=== PATIENT | female | born 1975 | race Caucasian/White ===

== ENCOUNTER → 2016-12-01 | Outpatient (CLI) | payer MEDICARE, MEDICAID ==
[~2016-12-01] MED LIST: /DULO30CA OR; /GLIM4TA OR; /INSULEV SC; AMLO25TA PO; BLAC540C PO; BUSP10TA PO; DULO20CA OR; FISH1CAP14 PO; GABAPOW41 PO; HYDR-3713 PO; INSUH10VL SC; INSULANT SC; INSULIN; ISOS20TA PO; L-LY500C2 PO; NEUR300C OR; OXCARBAZEPINE PO; TRIL1TAB PO; VALI5TAB OR; VITA1CAP40 PO; [UNRECOGNIZED DRUG - CODE] PO
[2016-12-01 10:29] LABS: BASO % 0.5 % (0.0-1.0); EOS # 0.1 K/mm3 (0.0-0.50); EOS % 1.4 % (0.0-3.0); LARGE UNSTAINED CELL # 0.1 K/mm3 (0.0-0.4); LYMPH # 1.8 K/mm3 (1.5-4.5); LYMPH % 20.3 % (24.0-44.0); MEAN CORPUSCULAR HGB CONC 34.1 g/dl (32.0-36.5); MEAN CORPUSCULAR VOLUME 93.8 fl (80.0-96.0); MONO # 0.5 K/mm3 (0.0-0.8); MONO % 5.6 % (0.0-5.0); NEUTROPHILS # 5.9 K/mm3 (1.8-7.7); NEUTROPHILS % 71.1 % (36.0-66.0); PLATELET COUNT, AUTOMATED 236 k/mm3 (150-450); WHITE BLOOD COUNT 8.3 K/mm3 (4.0-10.0)
--- NOTE | 2016-12-01 10:51 | REP ---
PA and lateral chest: Comparison is 03/29/2013. The lung marks are clear. The cardiac size is normal The mikel, mediastinum, and bony thorax are unremarkable. Impression: Negative PA and lateral chest. There is no interval change. Signed by Camron Fischer MD 12/01/2016 10:42 A
[2016-12-01 10:53] LABS: ALBUMIN 3.6 GM/DL (3.2-5.2); ALBUMIN/GLOBULIN RATIO 0.97 (1.00-1.93); ALKALINE PHOSPHATASE 85 U/L (45-117); ALT/SGPT 28 U/L (12-78); ANION GAP 8 MEQ/L (8-16); AST/SGOT 9 U/L (15-37); BILIRUBIN,TOTAL 0.4 MG/DL (0.2-1.0); BLOOD UREA NITROGEN 7 MG/DL (7-18); CARBON DIOXIDE LEVEL 28 MEQ/L (21-32); CHLORIDE LEVEL 101 MEQ/L (98-107); CREATININE FOR GFR 0.64 MG/DL (0.55-1.02); GLOMERULAR FILTRATION RATE > 60.0 (>58); GLUCOSE, FASTING 320 MG/DL (70-105); PHOSPHORUS LEVEL 3.2 MG/DL (2.5-4.9); POTASSIUM SERUM 4.5 MEQ/L (3.5-5.1); SODIUM LEVEL 137 MEQ/L (136-145); TOTAL PROTEIN 7.3 GM/DL (6.4-8.2)
--- NOTE | 2016-12-01 20:32 | ECGEPIP ---
Stationary ECG Study [facility] Test Date: 2016-12-01 Pat Name: CAPRI JEFFERS Department: Room: - Gender: F Advertising Rep: RENETTA : 1975 Requested By: Gil Maria Order Number: [id number] Reading MD: Brendan Sin Measurements Intervals [place] Rate: 100 P: 56 OR: 135 QRS: 85 QRSD: 91 T: 25 QT: 351 QTc: 453 Interpretive Statements Sinus tachycardia. Somewhat low limb voltages with slow precordial R-wave progression. Body habitus versus pulmonary disease. Marginal nonspecific inferior ST/T-wave abnormalities. No prior tracing. Clinical correlation advised. Electronically Signed On 12-01-2016 20:32:37 EDT by Brendan Sin
== END ==
LOC: M LAB 09:56
PROVIDERS: ATTEND Dentist Oral and Maxillofacial Surgery
DX: Z01.818 Encounter for other preprocedural examination (principal); K08.9 Disorder of teeth and supporting structures, unspecified; R00.0 Tachycardia, unspecified

== ENCOUNTER → 2016-12-11 | Day surgery (SDC) | payer MEDICARE, MEDICAID ==
[~2016-12-11] VITALS: Ht 162.6 cm; Wt 108.9 kg
[~2016-12-11] MED LIST changes: +LIDOCAINE 2% INJ 100 MG/5 ML SDV (FOR ANES.) As Ordered ONE; +LIDOCAINE 2% W/ EPINEPHRINE 1.7 ML DENTAL INJ As Ordered ONE; +LR 1,000 ML IV ONE; +LR 1,000 ML IV SCH; +MEPIVACAINE HCL 3 % 1.7 ML DENTAL CARTRIDGE (CARBOCAINE) (J0670) As Ordered ONE; +MIDAZOLAM INJ 2 MG/2 ML VIAL (J2250) As Ordered ONE; +ONDANSETRON 4MG/2ML VIAL (J2405) As Ordered ONE; +PERCOCET 5MG/325MG TAB PO PRN; +PROPOFOL 200 MG/20 ML VIAL As Ordered ONE; +ROCURONIUM BROMIDE 50 MG/5 ML VIAL/SYRINGE As Ordered ONE; +SUGAMMADEX SODIUM 500 MG/5 ML VIAL (BRIDION) As Ordered ONE; +dexameTHASONE 4 MG/ML 1ML VIAL (J1100) As Ordered ONE; +fentaNYL 100 MCG/2 ML INJECTION (J3010) As Ordered ONE; +fentaNYL 100 MCG/2 ML INJECTION (J3010) IV PRN
[2016-12-11 15:50] VITALS: BP 132/76
--- NOTE | 2016-12-13 08:16 | RO ---
DATE OF PROCEDURE: 12/11/2016 PREOPERATIVE DIAGNOSIS: Carious and nonrestorable teeth, numbers 13, 15, 17, 20 and 29. POSTOPERATIVE DIAGNOSIS: Carious and nonrestorable teeth, numbers 13, 15, 17, 20 and 29. PROCEDURE PERFORMED: Surgical removal of teeth as listed, 13, 15, 17, 20 and 29. SURGEON: Gil Maria DDS STROBOROMA OPERATOR: ANESTHESIA: General endotracheal. INDICATION: This patient is a 41-year-old female who presents on referral from her general dentist for removal of multiple teeth. Patient with multiple medical history including EKG changes with Prinzmetal's angina and anxiety, fibromyalgia, diabetes, and heart palpitations. Patient on multiple medications and felt necessary to be performed in the operating room under general anesthesia. DESCRIPTION OF PROCEDURE/NARRATIVE SUMMARY: Patient was brought to the OR per anesthesia and placed supine on the OR table wherein general endotracheal anesthesia was undertaken without difficulty. After the usual sterile prep and drape for the intraoral procedures performed, a throat pack was placed. 3% Carbocaine plain was injected by way of infiltration fashion along the surgical sites. Attention was first turned to teeth 17 and 20. A 15 blade was used to make a full thickness mucoperiosteal incision carried from the left external oblique ridge forward to the area of tooth 21. Full thickness flap was then raised with a periosteal elevator exposing the area of the broken down retained roots of 17 as well as number 20. The [employer] drill and copious sterile sale was used to uncover the overlying bone over top of tooth 20 for access and to mobilize the retained broken down tooth roots. Number 17's roots, after identified, were elevated and removed and number 20 was also removed after exposure with the [place]os drill. Buccal bone support was then smoothed and the sockets were curetted, irrigated and then closed with #3-0 gut interrupted sutures for hemostasis. Attention was then turned to teeth numbers 13 and 15. Again, a 15 scalpel blade was used to make a full thickness mucoperiosteal incision, carried from the left maxillary tuberosity forward to the area of tooth 12. A full thickness flap was then raised with a periosteal elevator exposing the buccal bone support with retained broken down tooth. Roots were then identified, elevated and removed without difficulty. Bone was smoothed. Sockets were curetted and closed with #3-0 gut interrupted suture for hemostasis. Attention lastly turned to tooth 29. After locating retained root, after elevation of the mucoperiosteal flap with a periosteal elevator, the tooth was then elevated and removed without difficulty. Socket was curetted. A piece of Gelfoam was placed for hemostasis and a lower #3-0 gut interrupted suture for hemostasis. At the termination of the procedure, the oropharynx was inspected and found to be free of debris. There was no active heme. Throat pack was removed and the patient was awakened per anesthesia. ESTIMATED BLOOD LOSS DURING PROCEDURE: Approximately 20 mL. FLUIDS: 700 mL crystalloid solution. COUNTS: The needle and sponge count was correct. PATHOLOGY: The teeth were sent for identification only. DISPOSITION: The patient was extubated in the operating room and taken to the recovery room breathing spontaneously and in stable condition.
== END | disposition home or self-care (01) ==
LOC: M SDC 11:02
PROVIDERS: ATTEND Dentist Oral and Maxillofacial Surgery
DX: K02.9 Dental caries, unspecified (principal); I20.1 Angina pectoris with documented spasm; F41.9 Anxiety disorder, unspecified; M79.7 Fibromyalgia; E11.9 Type 2 diabetes mellitus without complications; R00.2 Palpitations; I11.9 Hypertensive heart disease without heart failure; K58.9 Irritable bowel syndrome, unspecified; M17.0 Bilateral primary osteoarthritis of knee; M19.279 Secondary osteoarthritis, unspecified ankle and foot; M16.0 Bilateral primary osteoarthritis of hip; M46.90 Unspecified inflammatory spondylopathy, site unspecified; F31.9 Bipolar disorder, unspecified; G43.909 Migraine, unspecified, not intractable, without status migrainosus; L70.9 Acne, unspecified; Z79.899 Other long term (current) drug therapy; Z79.4 Long term (current) use of insulin; Z87.891 Personal history of nicotine dependence; Z88.8 Allergy status to other drugs, medicaments and biological substances; Z91.09 Other allergy status, other than to drugs and biological substances; Z88.4 Allergy status to anesthetic agent
CPT/HCPCS: 41899; 88300; J0670; J1100; J2250; J2405; J3010

== ENCOUNTER → 2021-04-14 | Outpatient (REF) | payer MEDICARE, MEDICAID ==
[~2021-04-14] MED LIST changes: -/DULO30CA OR; -/GLIM4TA OR; -/INSULEV SC; +AMAR1TAB6 OR; +CYMB1CAP4 OR; +CYMB1CAP5 OR; -DULO20CA OR; +LEVE0.01 SC; -LIDOCAINE 2% INJ 100 MG/5 ML SDV (FOR ANES.) As Ordered ONE; -LIDOCAINE 2% W/ EPINEPHRINE 1.7 ML DENTAL INJ As Ordered ONE; -LR 1,000 ML IV ONE; -LR 1,000 ML IV SCH; -MEPIVACAINE HCL 3 % 1.7 ML DENTAL CARTRIDGE (CARBOCAINE) (J0670) As Ordered ONE; -MIDAZOLAM INJ 2 MG/2 ML VIAL (J2250) As Ordered ONE; -ONDANSETRON 4MG/2ML VIAL (J2405) As Ordered ONE; -PERCOCET 5MG/325MG TAB PO PRN; -PROPOFOL 200 MG/20 ML VIAL As Ordered ONE; -ROCURONIUM BROMIDE 50 MG/5 ML VIAL/SYRINGE As Ordered ONE; -SUGAMMADEX SODIUM 500 MG/5 ML VIAL (BRIDION) As Ordered ONE; -VITA1CAP40 PO; +VITA50005 PO; -dexameTHASONE 4 MG/ML 1ML VIAL (J1100) As Ordered ONE; -fentaNYL 100 MCG/2 ML INJECTION (J3010) As Ordered ONE; -fentaNYL 100 MCG/2 ML INJECTION (J3010) IV PRN
[2021-04-15 15:23] LABS: CREATININE, URINE 25.9 MG/DL; MALB URINE SIEMENS 65.8 MG/L
== END ==
LOC: M LAB REF 13:27
PROVIDERS: ATTEND Internal Medicine Endocrinology, Diabetes & Metabolism
DX: E11.65 Type 2 diabetes mellitus with hyperglycemia (principal)

== ENCOUNTER → 2022-07-24 | Outpatient (CLI) | payer MEDICARE, MEDICAID ==
[~2022-07-24] MED LIST changes: -ISOS20TA PO; +ISOS20TA53 PO
== END ==
LOC: M RAD 11:51
PROVIDERS: ATTEND Internal Medicine Cardiovascular Disease
DX: E78.2 Mixed hyperlipidemia (principal); E11.51 Type 2 diabetes mellitus with diabetic peripheral angiopathy without gangrene; Z79.4 Long term (current) use of insulin; I73.9 Peripheral vascular disease, unspecified